=== PATIENT | female | born 1990 | race Caucasian/White ===

== ENCOUNTER 2021-11-21 10:25 | Inpatient (IN) | payer OTHER, SELFPAY ==
[2021-11-21] VITALS (50 sets, daily range): BP systolic 111–203; BP diastolic 65–122; PULSE 67–96; RESP 16; O2SAT 94–100; BMI 41.5
[2021-11-21 12:10] LABS: Basophils % 0.2 %; Eosinophils % 0.4 %; Hematocrit 35.5 % (37.0-47.0); Hemoglobin 11.5 g/dL (11.5-15.3); Lymphocytes # 2.2 10^3/uL (0.8-4.8); Lymphocytes % 21.8 %; Mean Corpuscular HGB Conc 32.4 g/dL (30.0-36.0); Mean Corpuscular Hemoglobin 29.2 pg (28.0-34.0); Mean Corpuscular Volume 90.1 fl (81-99); Mean Platelet Volume 12.1 fL (7.4-10.4); Monocytes # 0.4 10^3/uL (0.2-0.9); Neutrophils # 7.46 10^3/uL (1.8-7.7); Neutrophils % 72.9 %; Nucleated Red Blood Cells % 0 %; Platelet Count 225 10^3/cmm (130-400); Red Blood Count 3.94 10^6/uL (4.1-5.3); Red Cell Distribution Width 14.2 % (12.1-15.1); White Blood Count 10.2 10^3/uL (4.0-10.0)
[2021-11-21] MEDS: miSOPROStol 100 mcg tablet 25 MCG VAGINAL ×2 (12:49→17:14)
--- NOTE | 2021-11-21 16:26 | P.ANESASSM_ITS ---
Pre-Anesthetic Assessment Height/Weight: Height 1.78 m Weight 131.542 kg Pulse Resp BP 77 16 111/65 11/21/21 15:21 11/21/21 11:17 11/21/21 15:21 Preop Diagnosis: IUP epidural Familial anesthetic complications: None Was Beta Db taken within 24 hours: N/A Was Clonidine taken within 24 hours: N/A Last intake: ice chips Social No alcohol and No tobacco Exam alert, oriented x 3, clear to auscultation bilaterally and regular rate & rhythm Airway Mallampati: Class III Dentition: full Pulmonary None reported CV/HEM Hypertension None reported Hepatic None reported GI None reported Metabolic Morbid Obesity [facility] None reported Neuropsych None reported Anesthetic Plan ASA status: 2 Anesthesia: Regional (specify below) Risk of > 500 ml blood loss (7ml/kg in children): Yes, adequate IV access and fluids planned Medications/Allergies Current Medications Generic Name Dose Route Start Last Admin Trade Name Freq PRN Reason Stop Dose Admin Misoprostol 25 mcg 11/21/21 12:30 11/21/21 12:49 Misoprostol 100 Mcg Tablet VAGINAL 25 mcg Q4H PRN Administration induction PFSH Anesthesia Female Reproductive History : 2 Data Anesthesia : 11/21/21 11:00 Short CBC 11/21/21 Range/Units 11:00 WBC 10.2 H (4.0-10.0) 10^3/uL Hgb 11.5 (11.5-15.3) g/dL Hct 35.5 L (37.0-47.0) % MCV 90.1 (81-99) fl Plt Count 225 (130-400) 10^3/cmm Neut % (Auto) 72.9 % Neut # (Auto) 7.46 (1.8-7.7) 10^3/uL Cardiac Studies: No Data to Display
[2021-11-21] MEDS: lactated ringers 1,000 ML 999 ML IV (19:19)
--- NOTE | 2021-11-21 20:32 | ANES.PROC ---
Anesthesia Procedures Procedure/Date: 11/21/21 Epidural: Time Out Performed: Yes Consents Signed: Procedure Consent Consent: requested by attending/covering physician, from patient, risks and benefits reviewed and patient agrees to proceed Lumbar Level: L3-L4 Epidural position: sitting Epidural procedure: sterile prep of area, 1% lidocaine to numb the area, negative for paresthesia passed, neg for paresthesia, test dose given, placed PCEA, no systemic response, sterile dressing applied, L.U.D. no apparent complications and 0.2% Ropiavacaine @ mls/hr (13 ml) Additional Comments: BO at 8 cm catheter threaded to 15cm 100 mcg fentanyl given via epidural. 50 mcg fentanyl given at 1959 via IV per RN (patient requested). VSS.
--- NOTE | 2021-11-21 22:49 | PM.OPHPUD ---
Labor & Delivery H&P Update Date of Procedure: November 21, 2021 Date H&P Performed: 11/09/21 Changes to previous documentation: None Admission Diagnosis: 31-year-old 2 para 1-0-0-1 at 37 weeks and 2 days presenting for induction due to gestational hypertension. Preop diagnosis: IUP Primary indication for procedure: 37-week female with gestational hypertension Planned procedure: Induction with spontaneous vaginal delivery Related Problem List Diagnoses (1) 37 weeks gestation of : (2) Gestational hypertension: We will proceed with induction. We will initiate her induction with Cytotec 25 mcg per vagina, make other changes as needed. We will also use labetalol as needed to control her blood pressure. If we see concerns that her blood pressure is worsening, I will consider a preeclamptic work-up as well.
--- NOTE | 2021-11-21 22:56 | PM.DELIVERY ---
Delivery Note: Date of delivery: November 21, 2021 Pre-delivery diagnoses: 31-year-old 2 para 1-0-0-1 at 37 weeks and 2 days being induced for gestational hypertension Post-delivery diagnoses: Status post spontaneous vaginal delivery Procedure: Spontaneous vaginal delivery Delivering Physician: Héctor Welsh Estimated blood loss (mL): 100 Pre-Delivery Course: The patient presented to the hospital for induction. Cytotec 25 mcg per vagina every 4 hours x2 were placed. An amniotomy was performed. The patient progressed to complete without difficulty. The patient did have 1 episode of severe blood pressures that resolved fairly quickly. She has no other signs or symptoms of preeclampsia Delivery: DELIVERY: The patient progressed to complete without difficulty. She delivered a female with a weight of 6 pounds 7 ounces with Apgars of 9, 9. The baby was delivered from the KAVYA position and placed on the mother's abdomen. The cord was then clamped and cut. There was a nuchal cord x1. The baby was delivered through the cord. There was no meconium. The placenta and 3 vessel cord were delivered intact shortly thereafter. The perineum and vaginal vault were carefully examined. No lacerations were noted. Both the mother and the baby were in stable condition. Post-Delivery Status: Good A&P Assessment and plan (1) Spontaneous vaginal delivery: I anticipate routine care. We will monitor the patient's blood pressures and use labetalol as needed. Status: Acute (2) Gestational hypertension: Status: Acute (3) 37 weeks gestation of : Status: Acute Coding Level of Care Code Acute Air And Water Filler for Chg Fwd Diagnoses Spontaneous vaginal delivery O80 Gestational hypertension O13.9 37 weeks gestation of Z3A.37
[2021-11-22] VITALS (10 sets, daily range): BP systolic 128–157; BP diastolic 66–92; PULSE 74–100; RESP 15–18; TEMP 36.8; O2SAT 97–98
[2021-11-22] MEDS: HYDROcodone-acetaminophen 5-325 mg Tablet PO (07:20)
[2021-11-22] MEDS: ibuprofen 800 mg tablet PO ×3 (08:40→21:35)
[2021-11-22] MEDS: prenatal vitamin Capsule 1 CAP PO (08:41)
[2021-11-22] MEDS: docusate sodium 100 mg Capsule PO (08:41)
[2021-11-22 11:31] LABS: Hematocrit 35.5 % (37.0-47.0); Hemoglobin 11.5 g/dL (11.5-15.3); Mean Corpuscular HGB Conc 32.4 g/dL (30.0-36.0); Mean Corpuscular Hemoglobin 29.2 pg (28.0-34.0); Mean Corpuscular Volume 90.1 fl (81-99); Mean Platelet Volume 11.5 fL (7.4-10.4); Platelet Count 201 10^3/cmm (130-400); Red Blood Count 3.94 10^6/uL (4.1-5.3); Red Cell Distribution Width 14.2 % (12.1-15.1); White Blood Count 11.2 10^3/uL (4.0-10.0)
--- NOTE | 2021-11-22 15:09 | ANE.PACU2 ---
Inpatient post-anesthesia follow up: Airway intact: Yes Vital signs: Temperature 98.2 F Pulse Rate 80 Respiratory Rate 18 Blood Pressure 140/89 Pulse Oximetry 98 Oxygen Delivery Me thod Room Air Oxygen Flow Rate Fraction of Inspir ed Oxygen Hydration adequate: Yes Nausea and vomiting: No Pain level: 1 Mental status: Baseline
[2021-11-23 04:00] VITALS: BP 124/90; PULSE 80; O2SAT 98
--- NOTE | 2021-11-23 07:50 | PM.OBGYDC ---
Discharge Providers WORKERS COMPENSATION ADJUSTER Date of Admission: 11/21/21 10:25 Date of Discharge: 11/23/21 Attending Provider at Admission: Héctor Welsh MD Attending Provider at Discharge: Héctor Welsh MD Primary Care Provider: KIMMY Paz Diagnoses at Discharge Discharge Diagnosis (1) Spontaneous vaginal delivery: Status: Acute (2) Gestational hypertension: Status: Acute (3) 37 weeks gestation of : Status: Acute Reason for Visit Reason for Visit: induction Hospital Course Hospital Course Patient presented to the hospital for induction due to gestational hypertension. She was placed on Cytotec 25 mcg x 2. An amniotomy was performed. An epidural was placed. She progressed to complete and had an unremarkable delivery. With her oral labetalol, her blood pressures had been running reasonably. She did have a few episodes of spiking blood pressures in the severe ranges. , the patient's blood pressure was improved. Her bleeding was within normal limits. Her pain was well controlled. There are no signs of preeclampsia otherwise. Information Peripartum Data: Delivery Method: Vaginal Physical Exam Narrative: The patient is alert. She appears comfortable. Her heart has a regular rate and rhythm with no murmurs appreciated. Lungs are clear to auscultation bilaterally. Her fundus is firm and below the umbilicus. Urinary Catheter Management: Almeida: Cath Placed During This Visit: yes Urinary Catheter Date of Insertion: 11/21/21 Urinary Catheter Time of Insertion: 20:56 Discharge Data Studies Completed and Pending Laboratory Results WBC 11.2 10^3/uL (4.0-10.0) H 11/22/21 11:00 RBC 3.94 10^6/uL (4.1-5.3) L 11/22/21 11:00 Hgb 11.5 g/dL (11.5-15.3) 11/22/21 11:00 Hct 35.5 % (37.0-47.0) L 11/22/21 11:00 MCV 90.1 fl (81-99) 11/22/21 11:00 MCH 29.2 pg (28.0-34.0) 11/22/21 11:00 MCHC 32.4 g/dL (30.0-36.0) 11/22/21 11:00 RDW 14.2 % (12.1-15.1) 11/22/21 11:00 Plt Count 201 10^3/cmm (130-400) 11/22/21 11:00 MPV 11.5 fL (7.4-10.4) H 11/22/21 11:00 Neut % (Auto) 72.9 % 11/21/21 11:00 Lymph % (Auto) 21.8 % 11/21/21 11:00 Mathews % (Auto) 4.0 % 11/21/21 11:00 Eos % (Auto) 0.4 % 11/21/21 11:00 Baso % (Auto) 0.2 % 11/21/21 11:00 Neut # (Auto) 7.46 10^3/uL (1.8-7.7) 11/21/21 11:00 Lymph # (Auto) 2.2 10^3/uL (0.8-4.8) 11/21/21 11:00 Mathews # (Auto) 0.4 10^3/uL (0.2-0.9) 11/21/21 11:00 Eos # (Auto) 0.0 10^3/uL (0.0-0.8) 11/21/21 11:00 Baso # (Auto) 0.0 10^3/uL (0.0-0.1) 11/21/21 11:00 Nucleated RBC % (auto) 0 % 11/21/21 11:00 Nucleated RBCs # 0.0 /100WBC 11/21/21 11:00 Vitals Last Vital Signs Temp 98.2 F 11/22/21 11:23 Pulse 80 11/23/21 04:00 Resp 15 11/22/21 22:00 BP 124/90 11/23/21 04:00 Pulse Ox 98 11/23/21 04:00 Discharge Plan Discharge Patient Disposition: Home Condition: Stable Prescriptions: New labetalol 200 mg Tablet 200 mg PO BID PRN (Reason: Hypertension) Qty: 60 0RF ibuprofen 800 mg Tablet 800 mg PO TID Qty: 30 0RF -U 106.5-1 mg Capsule 1 cap PO DAILY Qty: 100 0RF Discharge Orders: Discharge Order (Routine); Ordered 11/23/21 Ordered By: Héctor Welsh Referrals: Héctor Welsh MD [Physician] - 4-7 days Discharge Diet: Usual diet Discharge Activity: Limit activity as instructed Patient Instructions: Opioid Safety Discharge Attestations WORKERS COMPENSATION ADJUSTER Time Spent in Discharge Care*: less than 30 min Coding Level of Care Code Acute Pump Assembler for Chg Fwd Diagnoses Spontaneous vaginal delivery O80 Gestational hypertension O13.9 37 weeks gestation of Z3A.37
--- NOTE | 2021-11-23 07:56 | PM.OBGYPN ---
LOAN ASSISTANT Subjective Subjective: Interval history: This note corresponds to the exam and evaluation that occurred on November 22. The patient is doing very well. Her bleeding has been within normal limits. Her pain is well controlled. Her blood pressures have been improving. Labor: Station: -1 Amniotic Membrane Status: Ruptured Monitor Mode: External Contraction Pattern: Regular Vitals/I&O/Wt Last Vital Signs Temp 98.2 F 11/22/21 11:23 Pulse 80 11/23/21 04:00 Resp 15 11/22/21 22:00 BP 124/90 11/23/21 04:00 Pulse Ox 98 11/23/21 04:00 Weight last 48 hrs Weight 290 lb Physical Exam Narrative: The patient is alert. She appears comfortable. Her heart has a regular rate and rhythm with no murmurs appreciated. Lungs are clear to auscultation bilaterally. Her fundus is firm and below the umbilicus. Urinary Catheter Management: Almeida: Cath Placed During This Visit: yes Urinary Catheter Date of Insertion: 11/21/21 Urinary Catheter Time of Insertion: 20:56 Data : 11/22/21 11:00 A&P Assessment and plan (1) Spontaneous vaginal delivery: She has done well . I anticipate routine care. Status: Acute (2) Gestational hypertension: Her blood pressures continue to improve. We will assess her need for blood pressure medication prior to discharge. Status: Acute (3) 37 weeks gestation of : Status: Acute Attestations Medical Necessity Statement*: Routine care Coding Level of Care Code Acute Freezing Room Worker for [facility] Kel Diagnoses Spontaneous vaginal delivery O80 Gestational hypertension O13.9 37 weeks gestation of Z3A.37
[2021-11-23 08:30] VITALS: BP 140/85; PULSE 84; RESP 16; TEMP 36.6; TEMP 36.7
== END 2021-11-23 09:20 | disposition home or self-care (01) | DRG 807 ==
LOC: OPOB 10:33 → OBGYN 22:45
PROVIDERS: Admitting Provider Family Medicine; PCP Nurse Practitioner; Visit Provider Family Medicine
DX: O13.4 Gestational [pregnancy-induced] hypertension without significant proteinuria, complicating childbirth (principal); Z37.0 Single live birth; O69.2XX0 Labor and delivery complicated by other cord entanglement, with compression, not applicable or unspecified; Z3A.37 37 weeks gestation of pregnancy
CPT/HCPCS: 12345; 36415; 51702; 59409; 85025; 85027; J3010

== ENCOUNTER 2022-05-25 22:53 | Emergency (ER) | payer OTHER, SELFPAY ==
[2022-05-25 22:55] VITALS: BP 170/104; PULSE 79; RESP 16; TEMP 36.5; O2SAT 98; BMI 35.9
[2022-05-25 23:11] LABS: Basophils # 0.1 10^3/uL (0.0-0.1); Basophils % 0.5 %; Eosinophils # 0.3 10^3/uL (0.0-0.8); Eosinophils % 2.4 %; Hematocrit 41.2 % (37.0-47.0); Lymphocytes # 3.5 10^3/uL (0.8-4.8); Lymphocytes % 32.1 %; Mean Corpuscular HGB Conc 31.6 g/dL (30.0-36.0); Mean Corpuscular Hemoglobin 28.8 pg (28.0-34.0); Mean Corpuscular Volume 91.2 fl (81-99); Monocytes # 0.7 10^3/uL (0.2-0.9); Monocytes % 6.9 %; Neutrophils % 57.7 %; Nucleated Red Blood Cells % 0 %; Platelet Count 309 10^3/cmm (130-400); Red Blood Count 4.52 10^6/uL (4.1-5.3); Red Cell Distribution Width 12.9 % (12.1-15.1); White Blood Count 10.7 10^3/uL (4.0-10.0)
[2022-05-25] MEDS: morphine 4 mg/mL SDV 1 mL IVP (23:14)
[2022-05-25 23:20] VITALS: BP 158/105; PULSE 68; RESP 16; O2SAT 98
--- NOTE | 2022-05-25 23:24 | ED_ITS ---
HPI - Abdominal Pain General: Chief Complaint: Abdominal Pain Stated Complaint: ABD PAIN Time Seen by Provider: 05/25/22 23:04 History of Present Illness: Patient is in today for abdominal pain. She reports she has been having abdominal pain off and on for months that will come and lasts an hour or so and then go away. She reports the pain is in her right upper quadrant abdomen and around to her right side back. She denies fever or chills at this time. She denies at this time. She reports that the pain is significant tonight. She denies urinary symptoms, vomiting, diarrhea, constipation. Associated Symptoms: Reports nausea; Denies chills, dysuria, fever(s) and vomiting Review of Systems Const: Denies: fever(s), chills or body aches Card: Denies: chest pain or palpitations Resp: Denies: dyspnea, productive cough or non-productive cough GI: Reports: abdominal pain and nausea; Denies: vomiting : Reports: flank pain (Right side back/flank pain); Denies: difficulty voiding, dysuria or urinary frequency Physical Exam Const: COMMON NORMALS: patient oriented x3 and alert OTHER: Patient is in apparent pain. She is grabbing her right upper quadrant abdomen and grimacing. 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 Neck/C-Spine: COMMON NORMALS: no JVD Resp: COMMON NORMALS: normal respiratory effort, No use of accessory muscles and clear to auscultation bilaterally AUSCULTATION: clear to auscultation bilaterally Cardio: COMMON NORMALS: no JVD, regular rate, regular rhythm, S1 normal heart sound present and S2 normal heart sound present RATE: regular rate RHYTHM: regular rhythm HEART SOUNDS: S1 normal heart sound present and S2 normal heart sound present GI: COMMON NORMALS: Normal to inspection, nondistended, normoactive bowel sounds present and Soft to palpation AUSCULTATION: Yes normoactive bowel sounds PALPATION: Yes Soft to palpation and Yes Tenderness to palpation present (GI) Details: RUQ : COMMON NORMALS: Yes no CVA tenderness BLADDER/KIDNEY EXAM: Yes no CVA tenderness Back/Pelvis: COMMON NORMALS: no CVA tenderness Neuro: COMMON NORMALS: patient oriented x3 SENSORIUM/ORIENTATION: Yes alert Course Vital Signs: Vital signs: Vital Signs Temperature 97.7 F 05/25/22 22:55 Pulse Rate 82 05/26/22 02:02 Respiratory Rate 14 05/26/22 02:02 Blood Pressure 122/75 05/26/22 02:02 Pulse Oximetry 97 05/26/22 02:02 Oxygen Delivery Me thod 05/25/22 23:20 MDM - Abdominal Pain Medical Decision Making Consider biliary colic, cholelithiasis, cholecystitis, renal stone White blood cell count minimally elevated. Negative for hematuria Less likely renal stone. Gallbladder ultrasound showed a's gallbladder wall thickening, positive Wang sign borderline dilated common bile duct and liver large and fatty liver. Patient is afebrile. Pain is controlled after second dose of morphine and Zofran. Patient does wish to be discharged home unless she absolutely has to stay in the hospital. We will start patient on fluoroquinolone antibiotic with Flagyl for mild cholecystitis. First dose is given here. Consulted with Dr. Evans who will prescribe Percocet 5/325 1 p.o. every 4-6 hours as needed pain #20 for pain control. Referred to case man renetta to try and get patient in with general surgery NEERAJ. Discussed dietary modifications to help with biliary colic symptoms. Discussed conservative treatment at home. Discussed red flags for worsening and advised patient to return to the emergency room as needed for new or worsening symptoms including, but not limited to, worsening pain, inability to keep down oral fluids, fever, chills, nausea, vomiting. Patient verbalizes understanding of all instruction. Discharged home in stable condition. Lab Data 05/25/22 23:07 05/25/22 23:07 Labs/Radiology: Radiology Impressions Gallbladder Ultrasound 05/25/22 23:49 IMPRESSION: 1. Gallstones with gallbladder wall thickening and a positive Wang's sign. Cholecystitis is likely. 2. Borderline dilated CBD. 3. Large and fatty liver. Laboratory Results WBC 10.7 10^3/uL (4.0-10.0) H 05/25/22 23:07 RBC 4.52 10^6/uL (4.1-5.3) 05/25/22 23:07 Hgb 13.0 g/dL (11.5-15.3) 05/25/22 23:07 Hct 41.2 % (37.0-47.0) 05/25/22 23:07 MCV 91.2 fl (81-99) 05/25/22 23:07 MCH 28.8 pg (28.0-34.0) 05/25/22 23:07 MCHC 31.6 g/dL (30.0-36.0) 05/25/22 23:07 RDW 12.9 % (12.1-15.1) 05/25/22 23:07 Plt Count 309 10^3/cmm (130-400) 05/25/22 23:07 MPV 10.0 fL (7.4-10.4) 05/25/22 23:07 Neut % (Auto) 57.7 % 05/25/22 23:07 Lymph % (Auto) 32.1 % 05/25/22 23:07 Bucks % (Auto) 6.9 % 05/25/22 23:07 Eos % (Auto) 2.4 % 05/25/22 23:07 Baso % (Auto) 0.5 % 05/25/22 23:07 Neut # (Auto) 6.20 10^3/uL (1.8-7.7) 05/25/22 23:07 Lymph # (Auto) 3.5 10^3/uL (0.8-4.8) 05/25/22 23:07 Bucks # (Auto) 0.7 10^3/uL (0.2-0.9) 05/25/22 23:07 Eos # (Auto) 0.3 10^3/uL (0.0-0.8) 05/25/22 23:07 Baso # (Auto) 0.1 10^3/uL (0.0-0.1) 05/25/22 23:07 Nucleated RBC % (auto) 0 % 05/25/22 23:07 Nucleated RBCs # 0.0 /100WBC 05/25/22 23:07 Sodium 139 mmol/L (136-145) 05/25/22 23:07 Potassium 3.8 mmol/L (3.5-5.1) 05/25/22 23:07 Chloride 102 mmol/L (98-107) 05/25/22 23:07 Carbon Dioxide 27 mmol/L (22-29) 05/25/22 23:07 Anion Gap 13.8 (5-19) 12/08/22 23:07 BUN 14 mg/dL (6-20) 05/25/22 23:07 Creatinine 0.7 mg/dL (0.5-0.9) 05/25/22 23:07 GFR Calculation 96.4 mL/min (90-130) 05/25/22 23:07 Glucose 104 mg/dL (65-115) 05/25/22 23:07 Calculated Osmolality 289 mOsm/kg (285-295) 05/25/22 23:07 Calcium 9.7 mg/dL (8.5-10.5) 05/25/22 23:07 Total Bilirubin 0.4 mg/dL (0.15-1.2) 05/25/22 23:07 AST 29 U/L (0-32) 05/25/22 23:07 ALT 87 U/L (0-33) H 05/25/22 23:07 Alkaline Phosphatase 98 U/L (35-105) 05/25/22 23:07 Total Protein 8.0 g/dL (6.6-8.7) 05/25/22 23:07 Albumin 4.2 g/dL (3.5-5.2) 05/25/22 23:07 Globulin 3.8 g/dL (1.3-4.6) 05/25/22 23:07 Lipase 39 U/L (13-60) 05/25/22 23:07 Urine Color Yellow (Yellow) 05/25/22 23:13 Urine Appearance Clear (CLEAR) 05/25/22 23:13 Urine pH 5 (5-7) 05/25/22 23:13 Ur Specific Denison 1.030 (1.005-1.030) 05/25/22 23:13 Urine Protein Trace (Negative) 05/25/22 23:13 Urine Glucose (UA) Norm (Normal) 05/25/22 23:13 Urine Ketones Negative (Negative) 05/25/22 23:13 Urine Blood Neg (Negative) 05/25/22 23:13 Urine Nitrate Negative (Negative) 05/25/22 23:13 Urine Bilirubin Neg (Negative) 05/25/22 23:13 Urine Urobilinogen Norm mg/dL (Negative) 05/25/22 23:13 Ur Leukocyte Esterase Trace (Negative) H 05/25/22 23:13 Urine RBC 0-4 /hpf (0-2) H 05/25/22 23:13 Urine WBC 0-4 /hpf (0-5) H 05/25/22 23:13 Ur Squamous Epith Cells 15-25 /hpf (0-5) H 05/25/22 23:13 Amorphous Sediment Not Reportable 05/25/22 23:13 Urine Bacteria Trace /hpf (NONE) 05/25/22 23:13 Urine HCG, Qual Negative (Negative) 05/25/22 23:13 Discharge Plan Discharge Patient Disposition: Home Clinical Impression: Cholecystitis Condition: Stable Prescriptions: New levofloxacin 500 mg tablet 500 mg PO DAILY 7 Days Qty: 7 0RF Rx Instructions: Start on 05/27/22 a.m. metronidazole 500 mg tablet 500 mg PO BID 7 Days Qty: 14 0RF ondansetron 4 mg tablet,disintegrating 4 mg PO Q8H 5 Days Qty: 15 0RF No Action labetalol 200 mg Tablet 200 mg PO BID PRN (Reason: Hypertension) Qty: 60 0RF ibuprofen 800 mg Tablet 800 mg PO TID Qty: 30 0RF -U 106.5-1 mg Capsule 1 cap PO DAILY Qty: 100 0RF Discharge Orders: Discharge ED (Routine); Ordered 05/26/22 Ordered By: Lazara Hall Referrals: Ozzy Gage, INDUSTRIAL GARAGE SERVICERRebaC [Primary Care Provider] - Patient Instructions: Opioid Safety, Pain Management Activity Restrictions/Additional Instructions: Take medication as prescribed. Start metronidazole this evening (05-26-2022). Start Levaquin 05-27-2020 2 AM. Make sure that you are staying well-hydrated. I recommend a bland diet avoiding caffeine, nicotine, chocolate, lettuce, red sauce, fried fatty foods. Use Percocet as prescribed as needed for pain. Do not drive after taking this medication. A referral to case management was initiated to help arrange appointment with general surgeon. Monitor closely for any new or worsening symptoms. Return to ER should you have increased pain, fever, chills, vomiting, inability to hold down oral liquids. Stand Alone Forms: Work/School Release Coding Level of Care Code ED Clipper And Turner for Yariel Fwd Exam Detailed
[2022-05-25 23:31] LABS: Anion Gap 13.8 (5-19); Aspartate Amino Transferase 29 U/L (0-32); Blood Urea Nitrogen 14 mg/dL (6-20); Calcium 9.7 mg/dL (8.5-10.5); Carbon Dioxide 27 mmol/L (22-29); Chloride 102 mmol/L (98-107); Glomerular Filtration Rate 96.4 mL/min (90-130); Glucose 104 mg/dL (65-115); Lipase 39 U/L (13-60); Osmolality Calculated 289 mOsm/kg (285-295); Potassium 3.8 mmol/L (3.5-5.1); Sodium 139 mmol/L (136-145); Total Bilirubin 0.4 mg/dL (0.15-1.2)
[2022-05-25 23:48] LABS: Add Urine Culture? No; Add Urine Microscopic? YES; Bacteria Urine TRACE /hpf; Bilirubin Urine Neg (Negative); Blood Urine Neg (Negative); Glucose Urine UA Norm (Normal); Ketones Urine Negative (Negative); Leukocyte Esterase Urine Trace (Negative); Nitrate Urine Negative (Negative); Protein Urine Trace (Negative); RBC Urine 0-4 /hpf (0-2); Squamous Epithelial Cell Urine 15-25 /hpf (0-5); Urine Appearance Clear (CLEAR); Urine Color Yellow (Yellow); Urobilinogen Urine Norm (Negative); WBC Urine 0-4 /hpf (0-5); pH Urine 5 (5-7)
--- NOTE | 2022-05-25 23:49 | USR_ITS ---
PROCEDURE INFORMATION: Exam: US Abdomen, Limited; Right Upper Quadrant Exam date and time: 05/26/2022 12:03 AM Age: 32 years old Clinical indication: Abdominal pain; Patient HX: Intermittent ruq pain x 1-2 months TECHNIQUE: Imaging protocol: Real time ultrasound of the abdomen with image documentation. Limited exam focused on the right upper quadrant. COMPARISON: US OB >= 14 weeks fetus [id number] 07/27/2021 3:38 PM FINDINGS: Liver: The liver shows no solid mass. No visualized ascites. The liver measures 22 cm in length and is echogenic. Gallbladder: The gallbladder contains multiple stones up to 18 mm in size. At least 1 is lodged at the gallbladder neck. The gallbladder wall is thickened to 7 mm. Positive sonographic Wang's sign. Biliary ducts: 6 mm CBD is upper limits of normal. Pancreas: The pancreas is not well seen due to overlying bowel gas. It shows no focal abnormality, however. Right kidney: Unremarkable. No solid renal mass or hydronephrosis. US/US gall bladder [id number] IMPRESSION: 1. Gallstones with gallbladder wall thickening and a positive Wang's sign. Cholecystitis is likely. 2. Borderline dilated CBD. 3. Large and fatty liver.
[2022-05-25 23:53] LABS: Alanine Aminotransferase 87 U/L (0-33); Albumin Level 4.2 g/dL (3.5-5.2); Alkaline Phosphatase 98 U/L (35-105); Globulin 3.8 g/dL (1.3-4.6)
[2022-05-26 00:02] VITALS: RESP 18
[2022-05-26] MEDS: morphine 4 mg/mL SDV 1 mL IVP (00:02)
[2022-05-26] MEDS: ondansetron 2 mg/ML SDV 2 mL 4 MG IVP (00:03)
[2022-05-26 01:10] VITALS: BP 139/94; PULSE 62; RESP 14; O2SAT 95
[2022-05-26] MEDS: metroNIDAZOLE 500 MG Tablet PO (01:21)
[2022-05-26] MEDS: sodium chloride 0.9% 1,000 ML 999 ML IV (01:21)
[2022-05-26] MEDS: levofloxacin-dextrose 5 % 500 MG/100 ML PREMIX 100 MG IV (01:21)
[2022-05-26 01:30] VITALS: BP 146/88; PULSE 67; RESP 14; O2SAT 94
[2022-05-26 02:02] VITALS: BP 122/75; PULSE 82; RESP 14; O2SAT 97
--- NOTE | 2022-05-26 09:38 | DCPLANNER ---
Addendum entered by Milvia Farmer 05/30/22 14:51: Patient had a follow up appointment scheduled with Dr. Parker on 05.29.22 at general surgery - patient did attend appointment. Original Note: automation sales manager had message to schedule a follow up appointment for patient with general surgery. automation sales manager sent patients information to the front office staff at general surgery. Patients information will be printed and reviewed. clinic will call patient with appointment information.
== END 2022-05-26 02:30 | disposition home or self-care (01) ==
PROVIDERS: Emergency Provider Nurse Practitioner Family; PCP Nurse Practitioner
DX: K81.9 Cholecystitis, unspecified (principal); R11.0 Nausea
CPT/HCPCS: 76705; 80053; 81001; 81025; 83690; 85025; 96365; 96375; 96376; 99285; J1956; J2270; J2405; J7030

== ENCOUNTER 2022-06-15 10:13 | Day surgery (SDC) | payer OTHER, SELFPAY ==
[2022-06-14 08:27] VITALS: BMI 39.9
[2022-06-15] VITALS (21 sets, daily range): BP systolic 121–158; BP diastolic 80–102; PULSE 62–102; RESP 9–21; TEMP 36.1–36.4; O2SAT 90–99
--- NOTE | 2022-06-15 10:50 | P.ANESASSM_ITS ---
Pre-Anesthetic Assessment Height/Weight: Height 1.75 m Weight 122.47 kg Temp Pulse Resp BP Pulse Ox O2 Del Method 97.0 F L 102 H 16 146/101 97 06/15/22 10:30 06/15/22 10:30 06/15/22 10:30 06/15/22 10:30 06/15/22 10:30 06/15/22 10:32 Preop Diagnosis: Cholecystitis Operation Date: 06/15/22 11:45 Proposed Procedures p Laparoscopic Cholecystectomy 40916,K80.20(Not Applicable) - Juan Parker DO Familial anesthetic complications: None Was Beta Db taken within 24 hours: N/A Was Clonidine taken within 24 hours: N/A Last intake: Intake Last Liquid Date 06/14/22 Last Liquid Time 19:30 Last Solid Date 06/14/22 Last Solid Time 19:00 Social No alcohol and No tobacco Exam alert, oriented x 3, clear to auscultation bilaterally and regular rate & rhythm Airway Mallampati: Class II Dentition: full CV/HEM Hypertension Metabolic Morbid Obesity Anesthetic Plan ASA status: 2 Anesthesia: General Risk of > 500 ml blood loss (7ml/kg in children): No Medications/Allergies Home Medications Medication Instructions Recorded Confirmed Last Taken Type ibuprofen 800 mg tablet 800 mg PO TID #30 tabs 11/23/21 06/14/22 05/22/22 Rx labetalol 200 mg tablet 200 mg PO BID PRN Hypertension #60 11/23/21 06/14/22 06/15/22 Rx tabs hydrocodone 5 mg-acetaminophen 325 1 tab PO .Q 4-6 hours PRN Pain 05/29/22 06/14/22 05/22/22 History mg tablet hydrochlorothiazide 12.5 mg tablet 12.5 mg PO DAILY 06/15/22 06/15/22 06/15/22 History Allergies Allergy/AdvReac Type Severity Reaction Status Date / Time No Known Allergies Allergy Verified 06/14/22 08:21 [facility] Anesthesia Surgical History History of salpingectomy [facility] tube removal at [facility] Family History Mother Hypertension Diabetes Father Diabetes Hypertension Social History (Updated 06/05/22 @ 11:48 by Celina Humphries RN) Smoking and tobacco status: never smoked Alcohol intake: never Female Reproductive History Date of last menstrual period: 05/14/22 Data Anesthesia 06/15/22 10:37 Cardiac Studies: No Data to Display
[2022-06-15] MEDS: sodium chloride 0.9% 1,000 ML 30 ML IV (10:51)
[2022-06-15 10:53] LABS: OR HCG Qualitative Urine Negative (Negative)
--- NOTE | 2022-06-15 10:57 | W.PM.OPSUD ---
Surgery/Procedure H&P Update DATE OF PROCEDURE: June 15, 2022 DATE H&P PERFORMED: 05/29/22 PREOP DIAGNOSIS: Cholecystitis PLANNED PROCEDURE: Operation Date: 06/15/22 11:45 Proposed Procedures p Laparoscopic Cholecystectomy 99584,K80.20(Not Applicable) - Juan Parker DO
--- NOTE | 2022-06-15 10:57 | W.PM.OPSUD ---
Surgery/Procedure H&P Update DATE OF PROCEDURE: June 15, 2022 DATE H&P PERFORMED: 05/29/22 PREOP DIAGNOSIS: Cholecystitis PLANNED PROCEDURE: Operation Date: 06/15/22 11:45 Proposed Procedures p Laparoscopic Cholecystectomy 54029,K80.20(Not Applicable) - Juan Parker DO
[2022-06-15] MEDS: ceFAZolin 2,000 MG in sodium chloride 0.9% (plus) 50 ML 100 MG IV (11:30)
--- NOTE | 2022-06-15 13:33 | PM.OP ---
Operative Report Date of procedure: June 15, 2022 Pre-op diagnosis: Preop Diagnosis Cholecystitis Post-op diagnosis: other (Acute cholecystitis) Procedure done: Laparoscopic cholecystectomy Specimens removed/disposition: Gallbladder Surgeon: Dr. Juan Parker DO Anesthesia: General Estimated blood loss (mL): 400 Complications: None apparent Findings: Acute cholecystitis with dense fibrous adhesions. Brief History: This very pleasant 32-year-old female with cholecystitis. Laparoscopic cholecystectomy was indicated. The risks and benefits were explained and documented. Procedure: Patient was wheeled into the operative room and placed on the OR table in a supine position. Abdomen was inspected prepped and draped in usual sterile fashion. Time-out was performed and all present were in agreement. A 15 blade scalpel was used to make a stab incision in the left upper quadrant and intra-abdominal insufflation was achieved using a Veress needle. After localizing the tissue incisions were made and a 5 millimeter trocar was placed into the umbilicus as well as 2 in the right upper quadrant. A 12 millimeter trocar was placed in the epigastrium. The gallbladder was very large and inflamed. Gallbladder was grasped and elevated. A tenaculum had to be used as the gallbladder was too large and hard for any other grasper to grasp it. The triangle of Calot was carefully dissected using blunt dissection and electrocautery until the triangle of Calot clearly identified. The cystic duct was clipped proximally and double clipped distally. The duct was then ligated proximally. The cystic artery was doubly clipped and ligated. There was some blood loss at this time as the clip personal care service provider malfunctioned and I had some difficulty in placing a clip over the artery after transection. Surgically was then placed over the clip. The gallbladder was then removed from the liver bed using electrocautery. There was significant purulence coming from the gallbladder where the tenaculum grasped at. The gallbladder was removed from the abdomen using an Endo-Catch bag through the epigastric incision. The epigastric incision had to be elongated significantly in order to pass the gallbladder. The liver bed was inspected and no bleeding was seen. The abdomen was irrigated and suctioned. A 19 Lao Lukasz drain was then placed into Morison's pouch coming out of the right upper quadrant. Drain was sewn in place with 3-0 nylon. All ports removed. Skin was washed and dried. Incisions were closed with 3-0 and 4-O Vicryl in a subcuticular interrupted fashion. Skin glue was applied. Patient tolerated the procedure well.
--- NOTE | 2022-06-15 13:58 | P.PCN_ITS ---
PACU note Narrative: VSS, Good respiratory effort, report to PSYCHOTHERAPIST COUNSELOR Exam: awake
--- NOTE | 2022-06-15 13:58 | PM.PACU ---
PACU note Narrative: VSS, Good respiratory effort, report to CAR ICER Exam: awake
[2022-06-15] MEDS: HYDROmorphone 1 mg/mL INJ 1 mL 0.5 MG IVP ×3 (14:05→14:42)
--- NOTE | 2022-06-15 14:58 | PC.NURSE ---
patient SaO2 drops to upper 80s when sleeping. O2 applied
[2022-06-15] MEDS: HYDROcodone-acetaminophen 7.5-325 mg Tablet 1 TAB PO (15:46)
--- NOTE | 2022-06-15 16:54 | ANE.PACU2 ---
Inpatient post-anesthesia follow up: Airway intact: Yes Vital signs: Temperature 97.6 F Pulse Rate 62 Respiratory Rate 16 Blood Pressure 122/80 Pulse Oximetry 94 Oxygen Delivery Me thod Room Air Oxygen Flow Rate 2 Fraction of Inspir ed Oxygen Hydration adequate: Yes Nausea and vomiting: No Pain level: 1 Mental status: Baseline
== END 2022-06-15 16:05 | disposition home or self-care (01) ==
PROVIDERS: Anesthesiology; PCP Family Medicine; Visit Provider Surgery
PROC: 0FT44ZZ Resection of Gallbladder, Percutaneous Endoscopic Approach (ICD-10-PCS; CPT 47562; principal; 2022-06-15 11:35)
DX: K80.10 Calculus of gallbladder with chronic cholecystitis without obstruction (principal); I10 Essential (primary) hypertension; E66.01 Morbid (severe) obesity due to excess calories; Z68.39 Body mass index [BMI] 39.0-39.9, adult
CPT/HCPCS: 47562; 81025; 84703; 88304; J0690; J1100; J1170; J2250; J2405; J2704; J3010; J3490; J7030

== ENCOUNTER 2024-08-11 15:24 | Outpatient (CLI) | payer OTHER, SELFPAY ==
[2024-08-11 16:23] LABS: Hepatitis C Virus Antibody Non-Reactive (Nonreactive)
[2024-08-11 16:24] LABS: Hepatitis B Surface Antigen Non-Reactive (Nonreactive)
[2024-08-11 16:32] LABS: HIV 1 & 2 Antibody Non-Reactive (Non-Reactiv); HIV 1 & 2 Antigen Non-Reactive (Non-Reactiv)
== END 2024-08-11 15:25 | disposition home or self-care (01) ==
LOC: LAB 15:25
PROVIDERS: PCP Family Medicine
DX: Z57.8 Occupational exposure to other risk factors (principal); W46.0XXA Contact with hypodermic needle, initial encounter; Y99.0 Civilian activity done for income or pay
CPT/HCPCS: 86803; 87340; 87806